=== PATIENT | female | born 1995 | race Caucasian/White ===

== ENCOUNTER 2018-02-15 10:09 | Emergency (ER) | payer BC ==
[~2018-02-15] VITALS: Ht 167.6 cm; Wt 93.1 kg
[2018-02-15 10:13] VITALS: BP 129/84
[2018-02-15] MEDS ORDERED: NAPR-56 PO (10:41)
== END 2018-02-15 10:53 | disposition home or self-care (01) ==
LOC: ER 10:10 → EDBD 10:10 → ER 10:53
DX: M25.462 Effusion, left knee (principal); Z79.899 Other long term (current) drug therapy
CPT/HCPCS: 73564; 99284